=== PATIENT | male | born 1945 | race Two or more races ===

== ENCOUNTER 2016-09-25 00:30 | Inpatient (IN) | payer MEDICARE, OTHER ==
[~2016-09-25] VITALS: Ht 165.1 cm; Wt 67.5 kg
[2016-09-25 01:17] LABS: Basophils # (auto) 0 uL; Basophils % (auto) 0.2 % (0.0-2.0); CONDITION Y; Eosinophils # (auto) 0 uL; Eosinophils % (auto) 0.3 % (0.0-7.0); Hematocrit 34.7 % (41.0-53.0); Hemoglobin 11.8 g/dL (13.5-17.5); Lymphocytes # (auto) 0.8 uL; Lymphocytes % (auto) 7.8 % (10.0-50.0); Mean Corpuscular Hemoglobin 33.2 pg (28.0-32.0); Mean Corpuscular Hgb Conc. 33.8 g/dL (32.0-36.0); Mean Corpuscular Volume 98.1 fL (80.0-100.0); Mean Platelet Volume 9.4 fL (7.4-10.4); Monocytes # (auto) 0.6 uL; Monocytes % (auto) 6.3 % (0.0-12.0); Neutrophils # (auto) 8.7 uL; Neutrophils % (auto) 85.4 % (37.0-80.0); Platelet Count (auto) 91 10^3/uL (140-450); Red Cell Distribution Width 13.4 % (11.6-16.0); White Blood Cell 10.2 10^3/uL (4.4-10.8)
[2016-09-25 01:32] LABS: INR 1.06 (0.9-1.15); Partial Thromboplastin Time 25.2 sec (22.64-33.71); Prothrombin Time 11.6 sec (9.37-12.3)
[2016-09-25 01:33] LABS: Albumin 3.2 g/dL (3.4-5.0); BUN/Creatinine Ratio 12.6; Calcium 8.8 mg/dL (8.5-10.1); Potassium 4.2 mmol/L (3.5-5.1)
[2016-09-25 01:35] LABS: Lactic Acid w/Reflex 3.4 mmol/L (0.4-2.0)
[2016-09-25 01:36] LABS: Bilirubin, Total 2.7 mg/dL (0.2-1.0); Total Protein 7.4 g/dL (6.4-8.2)
[2016-09-25 01:37] LABS: REFLEX LACTIC ACID YES OR NO YES
[2016-09-25] MEDS ORDERED: LORazepam 2MG/ML-1ML VIAL IV ONE ×2 (02:00→05:30)
[2016-09-25] MEDS ORDERED: SODIUM CHLORIDE 0.9% 500 ML IV ONE (02:00)
[2016-09-25 02:11] LABS: Magnesium 2.1 mg/dL (1.6-2.6)
[2016-09-25] MEDS ORDERED: LORazepam 2MG/ML-1ML VIAL ONE (05:18)
[2016-09-25] MEDS ORDERED: LACTULOSE 20Gm/30ML SOLN PO PRN (05:45)
[2016-09-25] MEDS ORDERED: MORPHINE SULF INJ 2 MG/ML SYRINGE 1ML IV PRN (05:45)
[2016-09-25] MEDS ORDERED: SODIUM CHLORIDE 0.9% 1,000 ML IV ONE ×2 (05:45)
[2016-09-25] MEDS ORDERED: DEXTROSE (50%) 50ML SYRG IV PRN (05:45)
[2016-09-25] MEDS ORDERED: LACTULOSE 20Gm/30ML SOLN PO ONE (05:45)
[2016-09-25] MEDS ORDERED: NITROGLYCERIN 0.4 MG SL TAB SL PRN (05:45)
[2016-09-25] MEDS: SPIRONOLACTONE 25 MG TAB PO SCH ×2 (06:00→17:54)
[2016-09-25] MEDS ORDERED: LACTULOSE 20Gm/30ML SOLN PO SCH (06:00)
[2016-09-25] MEDS: ACCU-CHEK COMFORT CURVE STRIP VI SCH ×3 (06:10→17:54)
[2016-09-25] MEDS: InsuLIN REG 1unit/0.01ml Soln (100units/ml) SC SCH ×3 (06:16→17:54)
[2016-09-25] MEDS: cefTRIAXone 1GM/50ML D5W 50 ML IV SCH (09:45)
[2016-09-25] MEDS ORDERED: FUROSEMIDE 40 MG/4 ML VIAL IV SCH (10:00)
[2016-09-25] MEDS ORDERED: ENOXAPARIN SOD 30 MG/0.3 ML SYRINGE SC SCH (10:00)
[2016-09-25] MEDS: ENOXAPARIN SOD 40 MG/0.4 ML SYRINGE SC SCH (10:18)
[2016-09-25] MEDS: PANTOPRAZOLE SODIUM 40 MG/10 ML VIAL IV SCH (10:18)
[2016-09-25] MEDS ORDERED: HALOPERIDOL LACTATE 5 MG/ML INJ VIAL ONE (12:43)
[2016-09-25] MEDS ORDERED: HALOPERIDOL LACTATE 5 MG/ML INJ VIAL IM PRN (12:45)
[2016-09-25] MEDS: RIFAXIMIN 550 MG TAB PO SCH ×2 (13:15→22:20)
[2016-09-25] MEDS: LACTULOSE 20Gm/30ML SOLN PO SCH ×3 (14:21→22:19)
[2016-09-25] MEDS ORDERED: LIDOCAINE 2% JELLY 11ml (GLYDO) ONE (16:05)
[2016-09-25 16:08] VITALS: BP 119/56
[2016-09-25] MEDS ORDERED: PANT1INJ3 PO (16:43)
[2016-09-25] MEDS ORDERED: SPIR100T21 PO (16:43)
[2016-09-25] MEDS ORDERED: FURO20TA3 PO (16:43)
[2016-09-25] MEDS ORDERED: RIFA550T PO (16:43)
[2016-09-25] MEDS ORDERED: LACT10SO3 PO (16:43)
[2016-09-25 22:00] VITALS: BP 126/48
[2016-09-26] MEDS: LACTULOSE 20Gm/30ML SOLN PO SCH ×6 (01:33→21:33)
[2016-09-26 05:00] VITALS: BP 114/57
[2016-09-26] MEDS: SPIRONOLACTONE 25 MG TAB PO SCH ×2 (06:00→18:16)
[2016-09-26] MEDS: InsuLIN REG 1unit/0.01ml Soln (100units/ml) SC SCH ×5 (06:00→23:30)
[2016-09-26] MEDS: ACCU-CHEK COMFORT CURVE STRIP VI SCH ×5 (06:17→23:29)
[2016-09-26 06:24] LABS: Basophils # (auto) 0 uL; Basophils % (auto) 0.2 % (0.0-2.0); CONDITION Y; DEFINITIVE SEE PRINTOUT; Eosinophils # (auto) 0 uL; Eosinophils % (auto) 0.2 % (0.0-7.0); Hemoglobin 10.8 g/dL (13.5-17.5); Lymphocytes # (auto) 0.5 uL; Lymphocytes % (auto) 13.5 % (10.0-50.0); Mean Corpuscular Hemoglobin 34.3 pg (28.0-32.0); Mean Corpuscular Hgb Conc. 35.8 g/dL (32.0-36.0); Mean Corpuscular Volume 95.8 fL (80.0-100.0); Mean Platelet Volume 9.3 fL (7.4-10.4); Monocytes # (auto) 0.5 uL; Monocytes % (auto) 13.9 % (0.0-12.0); Neutrophils # (auto) 2.5 uL; Neutrophils % (auto) 72.2 % (37.0-80.0); Platelet Count (auto) 54 10^3/uL (140-450); Red Cell Distribution Width 13.4 % (11.6-16.0); White Blood Cell 3.5 10^3/uL (4.4-10.8)
[2016-09-26 06:54] LABS: Albumin 2.6 g/dL (3.4-5.0); BUN/Creatinine Ratio 14.3; Bilirubin, Total 2.8 mg/dL (0.2-1.0); Calcium 7.9 mg/dL (8.5-10.1); Potassium 4.1 mmol/L (3.5-5.1); Total Protein 6.4 g/dL (6.4-8.2)
[2016-09-26 06:56] LABS: Platelet Estimate Decreased
[2016-09-26 06:57] LABS: RBC Morphology Normal
[2016-09-26 07:59] VITALS: BP 139/63
[2016-09-26] MEDS: cefTRIAXone 1GM/50ML D5W 50 ML IV SCH ×2 (09:17→11:35)
[2016-09-26] MEDS: ENOXAPARIN SOD 40 MG/0.4 ML SYRINGE SC SCH ×2 (10:00→11:35)
[2016-09-26] MEDS: RIFAXIMIN 550 MG TAB PO SCH ×2 (10:00→21:33)
[2016-09-26] MEDS: PANTOPRAZOLE SODIUM 40 MG/10 ML VIAL IV SCH (11:35)
[2016-09-26 12:01] VITALS: BP 144/49
[2016-09-26 13:34] LABS: Basophils # (auto) 0 uL; Basophils % (auto) 0.2 % (0.0-2.0); CONDITION Y; DEFINITIVE SEE PRINTOUT; Eosinophils # (auto) 0 uL; Eosinophils % (auto) 0.2 % (0.0-7.0); Hematocrit 33.5 % (41.0-53.0); Hemoglobin 11.6 g/dL (13.5-17.5); Lymphocytes # (auto) 0.6 uL; Lymphocytes % (auto) 13.8 % (10.0-50.0); Mean Corpuscular Hemoglobin 33.5 pg (28.0-32.0); Mean Corpuscular Hgb Conc. 34.6 g/dL (32.0-36.0); Mean Platelet Volume 8.9 fL (7.4-10.4); Monocytes # (auto) 0.5 uL; Monocytes % (auto) 11.4 % (0.0-12.0); Neutrophils # (auto) 3.3 uL; Neutrophils % (auto) 74.4 % (37.0-80.0); Platelet Count (auto) 64 10^3/uL (140-450); Red Cell Distribution Width 13.6 % (11.6-16.0); White Blood Cell 4.4 10^3/uL (4.4-10.8)
[2016-09-26 13:55] LABS: Albumin 2.6 g/dL (3.4-5.0); Calcium 7.9 mg/dL (8.5-10.1); Potassium 4.3 mmol/L (3.5-5.1)
[2016-09-26 13:58] LABS: BUN/Creatinine Ratio 13.8
[2016-09-26 14:01] LABS: Bilirubin, Total 2.7 mg/dL (0.2-1.0); Total Protein 6.6 g/dL (6.4-8.2)
[2016-09-26 16:05] VITALS: BP 105/42
[2016-09-26 22:00] VITALS: BP 121/54
[2016-09-27] MEDS: LACTULOSE 20Gm/30ML SOLN PO SCH ×4 (01:00→13:51)
[2016-09-27 05:00] VITALS: BP 103/55
[2016-09-27] MEDS: SPIRONOLACTONE 25 MG TAB PO SCH (05:18)
[2016-09-27] MEDS: ACCU-CHEK COMFORT CURVE STRIP VI SCH ×2 (05:20→12:17)
[2016-09-27] MEDS: InsuLIN REG 1unit/0.01ml Soln (100units/ml) SC SCH ×2 (05:20→12:00)
[2016-09-27 08:16] VITALS: BP 106/64
[2016-09-27] MEDS: PANTOPRAZOLE SODIUM 40 MG/10 ML VIAL IV SCH (09:40)
[2016-09-27] MEDS: ENOXAPARIN SOD 40 MG/0.4 ML SYRINGE SC SCH (09:40)
[2016-09-27] MEDS: RIFAXIMIN 550 MG TAB PO SCH (09:40)
[2016-09-27 13:10] VITALS: BP 122/61
[2016-09-27 13:14] VITALS: BP 109/43
== END 2016-09-27 14:00 | disposition home or self-care (01) | DRG 441 ==
LOC: EDBD 00:30 → ER 00:30 → TELE 00:31 → ICU WEST 14:50 → WEST WING 15:41
PROVIDERS: ADMIT Family Medicine; ATTEND Internal Medicine Pulmonary Disease
DX: K72.90 Hepatic failure, unspecified without coma (principal); N17.0 Acute kidney failure with tubular necrosis; E87.2 Acidosis; I10 Essential (primary) hypertension; E11.9 Type 2 diabetes mellitus without complications; E66.01 Morbid (severe) obesity due to excess calories; E78.5 Hyperlipidemia, unspecified; E86.0 Dehydration; K74.60 Unspecified cirrhosis of liver; K76.0 Fatty (change of) liver, not elsewhere classified; I70.90 Unspecified atherosclerosis
CPT/HCPCS: 36415; 51702; 70450; 71010; 80053; 80320; 82140; 82962; 83036; 83605; 83735; 84484; 85025; 85610; 85730; 87040; 87081; 93005; 94761; 96361; 96374; C9113; J0696; J1815